=== PATIENT | female | born 1950 | race Hispanic/Latino ===

== ENCOUNTER 2020-08-07 16:02 | Emergency (ER) | payer MEDICARE ==
[2020-08-07] MEDS ORDERED: Ondansetron PF 4 MG/2 ML Vial ONE (17:31)
[2020-08-07] MEDS ORDERED: Morphine 4 MG/ML VIAL ONE (17:31)
[2020-08-07 18:46] LABS: SARS-CoV-2 NAA Rapid Test Not Detected (NotDetected)
[2020-08-07] MEDS ORDERED: Fentanyl 100 MCG/2 ML VIAL ONE (18:47)
== END 2020-08-07 18:54 | disposition short-term general hospital (02) ==
LOC: CSHERS 16:02
DX: S82.142A Displaced bicondylar fracture of left tibia, initial encounter for closed fracture (principal); I10 Essential (primary) hypertension; E78.00 Pure hypercholesterolemia, unspecified; Z79.899 Other long term (current) drug therapy; X58.XXXA Exposure to other specified factors, initial encounter
CPT/HCPCS: 0240U; 73564; 96374; 96375; J2270; J2405; J3010